=== PATIENT | male | born 1990 | race African-American/Black ===

== ENCOUNTER 2020-08-06 01:57 | Emergency (ER) | payer SELFPAY ==
[~2020-08-06] VITALS: Ht 190.5 cm; Wt 117.9 kg
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
[2020-08-06] MEDS ORDERED: IBUPROFEN 600 MG TABLET PO ONE (03:30)
[2020-08-06] MEDS ORDERED: IBUPROFEN 600 MG TABLET ONE (03:45)
--- NOTE | 2020-08-06 04:07 | NUR ---
Patient discharged to home in stable condition. Written and verbal after care instructions given. Patient verbalizes understanding of instruction.
[2020-08-06 05:38] VITALS: BP 132/75
== END 2020-08-06 04:07 | disposition home or self-care (01) ==
LOC: ER 02:02
DX: S80.02XA Contusion of left knee, initial encounter (principal); S80.01XA Contusion of right knee, initial encounter; S30.0XXA Contusion of lower back and pelvis, initial encounter; S10.83XA Contusion of other specified part of neck, initial encounter; V49.69XA Unspecified car occupant injured in collision with other motor vehicles in traffic accident, initial encounter; Y93.89 Activity, other specified; Y92.413 State road as the place of occurrence of the external cause; Y99.8 Other external cause status
CPT/HCPCS: 72125-TC; 72131-TC; 73564-TC